=== PATIENT | male | born 1960 | race Caucasian/White ===

== ENCOUNTER 2016-03-31 08:13 | Emergency (ER) | payer OTHER ==
--- NOTE | 2016-03-31 10:48 | DIAGNOSTIC IMAGING REPORT ---
PROCEDURE: XR CHEST 1 VIEW INDICATION: DIZZY TECHNIQUE: Portable AP view 10:32 am COMPARISON: None. FINDINGS: Lungs are clear. Heart and mediastinum are normal. Thorax is normal. IMPRESSION: 1. Negative chest.
--- NOTE | 2016-03-31 12:00 | ED ORDER SUMMARY ---
..... Patient: SARINA RESTREPO OrderSheet [facility] VisitID: [id number] [address] [place] [address] 55y, M Registration Date/Time: 03/31/2016 ORDER SHEET Weight: 108.8 kg (stated) Allergies: No Known Drug Allergy GENERAL ORDERS: CBC w Diff Urgent (08:38 03/31/2016 Mer GEORGES) (Ack 8:40 LNations ER Tech1) (10:23 NHouse ER Tech1) CMP Urgent (08:38 03/31/2016 Mer GEORGES) (Ack 8:40 LNations ER Tech1) (10:23 NHouse ER Tech1) UA-Culture if indicated Urgent (08:38 03/31/2016 Mer GEORGES) (Ack 8:40 LNations ER Tech1) (10:23 NHouse ER Tech1) Vitals - Orthostatic (08:39 03/31/2016 Mer GEORGES) (Ack 8:41 LNations ER Tech1) (11:13 NHouse ER Tech1) EKG - ER Stat (08:41 03/31/2016 LNations ER Tech1 per protocol) (8:42 LNations ER Tech1) CPK Urgent (08:42 03/31/2016 Mer GEORGES) (Ack 8:47 LNations ER Tech1) (10:23 NHouse ER Tech1) Troponin-I Urgent (08:42 03/31/2016 Mer GEORGES) (Ack 8:47 LNations ER Tech1) (10:23 NHouse ER Tech1) Sports Instructor (Continuous) (08:50 03/31/2016 Mer GEORGES) (Ack 9:08 SStone R.N.) Pulse oximeter (08:50 03/31/2016 Mer GEORGES) (Ack 9:08 SStone R.N.) Oxygen (2 L/min) (NC) (08:50 03/31/2016 Mer GEORGES) (Ack 9:08 SStone R.N.) Chest 1V Urgent (10:23 03/31/2016 Liliane GEORGES) (Ack 10:25 NHouse ER Tech1) (11:18 NHouse ER Tech1) MEDICATION ORDERS: Aspirin PO 325 mg (NOW) (08:42 03/31/2016 Mer GEORGES) (Ack 8:44 SStone R.N.) (9:07 SStone R.N.) IV FLUIDS: IV Saline Lock (08:38 03/31/2016 Mer GEORGES) (Ack 8:44 SStone R.N.) (9:07 SStone R.N.) IV Saline Lock (08:50 03/31/2016 Mer GEORGES) (Ack 9:07 SStone R.N.) ORDER SHEET NOTES: [Electronically signed by Brianna Reagan R.N. (12:09 03/31/2016)] [Electronically signed by Trey Kirby MD (15:12 03/31/2016)] [Electronically locked/signed by Brianna Reagan R.N. (12:09 03/31/2016)]
--- NOTE | 2016-03-31 12:00 | ED ORDER SUMMARY ---
..... Patient: SARINA RESTREPO OrderSheet [facility] VisitID: [id number] [address] [place] [address] 55y, M Registration Date/Time: 03/31/2016 ORDER SHEET Weight: 108.8 kg (stated) Allergies: No Known Drug Allergy GENERAL ORDERS: CBC w Diff Urgent (08:38 03/31/2016 Mer GEORGES) (Ack 8:40 LNations ER Tech1) (10:23 NHouse ER Tech1) CMP Urgent (08:38 03/31/2016 Mer GEORGES) (Ack 8:40 LNations ER Tech1) (10:23 NHouse ER Tech1) UA-Culture if indicated Urgent (08:38 03/31/2016 Mer GEORGES) (Ack 8:40 LNations ER Tech1) (10:23 NHouse ER Tech1) Vitals - Orthostatic (08:39 03/31/2016 Mer GEORGES) (Ack 8:41 LNations ER Tech1) (11:13 NHouse ER Tech1) EKG - ER Stat (08:41 03/31/2016 LNations ER Tech1 per protocol) (8:42 LNations ER Tech1) CPK Urgent (08:42 03/31/2016 Mer GEORGES) (Ack 8:47 LNations ER Tech1) (10:23 NHouse ER Tech1) Troponin-I Urgent (08:42 03/31/2016 Mer GEORGES) (Ack 8:47 LNations ER Tech1) (10:23 NHouse ER Tech1) Teletypist (Continuous) (08:50 03/31/2016 Mer GEORGES) (Ack 9:08 SStone R.N.) Pulse oximeter (08:50 03/31/2016 Mer GEORGES) (Ack 9:08 SStone R.N.) Oxygen (2 L/min) (NC) (08:50 03/31/2016 Mer GEORGES) (Ack 9:08 SStone R.N.) Chest 1V Urgent (10:23 03/31/2016 Liliane GEORGES) (Ack 10:25 NHouse ER Tech1) (11:18 NHouse ER Tech1) MEDICATION ORDERS: Aspirin PO 325 mg (NOW) (08:42 03/31/2016 Mer GEORGES) (Ack 8:44 SStone R.N.) (9:07 SStone R.N.) IV FLUIDS: IV Saline Lock (08:38 03/31/2016 Mer GEORGES) (Ack 8:44 SStone R.N.) (9:07 SStone R.N.) IV Saline Lock (08:50 03/31/2016 Mer GEORGES) (Ack 9:07 SStone R.N.) ORDER SHEET NOTES: [Electronically signed by Brianna Reagan R.N. (12:09 03/31/2016)] [Electronically signed by Trey Kirby MD (15:12 03/31/2016)] [Electronically locked/signed by Brianna Reagan R.N. (12:09 03/31/2016)]
--- NOTE | 2016-03-31 12:00 | ED CLINICAL REPORT ---
Clinical Report - Physicians/Mid Levels [facility] [address] [place] [address] 03/31/2016 8:17 Patient: SARINA RESTREPO Time Seen: 08:31. Arrived- By private vehicle. Historian- patient. HISTORY OF PRESENT ILLNESS Chief Complaint: NEAR-SYNCOPE. The patient has recovered. This occurred yesterday. (Yesterday near fainting episode 1200. Another episode at 0530). The patient felt faint. The patient had preceding symptoms of light-headedness. (Feels woozy and dizzy.). Recent medical care: The patient was seen recently by a health care provider. ( [facility] medicine - bloodpressure.). REVIEW OF SYSTEMS The patient has had a headache (not currently). He has had chest pain (MAX 4-5 NOT 2/10. He attributes this to his reflux disease. He says that the symptoms are identical to those he experienced intermittently over the years.). All systems otherwise negative, except as recorded above. PAST HISTORY ( [facility] PROBLEMS: Bronchitis . Sinus disease . Reflux. Hypertension. ADDITIONAL SURGERIES: Sinus Surgery). Problems: Bronchitis . Sinus disease . Reflux. Hypertension. Additional Surgeries: Sinus Surgery. Medications: Montelukast 10 mg q.h.s.. Lsinopril 40 mg daily\. Clorthalidone 25 mg daily. Proair HFA 2 puffs q.4-6h prn. Amlodipine 10 mg daily. Allergies: No Known Drug Allergy. SOCIAL HISTORY Former smoker. FAMILY HISTORY Denies family medical history. ADDITIONAL NOTES The nursing notes have been reviewed. PHYSICAL EXAM Vital Signs: 03/31/2016 08:24 BP: 151/90. HR: 82. RR: 18. O2 saturation: 100%. Temp: 97.8 F. Pain level now: 0/10. Have been reviewed. Appearance: Alert. No acute distress. Eyes: Pupils equal, round and reactive to light. No nystagmus. ENT: Normal ENT inspection. Moist mucous membranes. Pharynx normal. Neck: Normal inspection. Neck supple. No meningeal signs or carotid bruit. CVS: Normal heart rate and rhythm. Heart sounds normal. Respiratory: No respiratory distress. Breath sounds normal. Abdomen: Soft and nontender. No organomegaly. Back: Normal inspection. Skin: Skin warm and dry. Normal skin color. No rash. Normal skin turgor. Extremities: Extremities exhibit normal ROM. No calf tenderness. No lower extremity edema. Neuro: Alert. Mood/affect normal. Speech normal. Cranial nerves normal (as tested). No cerebellar findings. No motor deficit. No sensory deficit. LABS, X-RAYS, AND EKG EKG: Normal EKG. Chest X-ray: No acute disease. The X-rays were independently viewed by me. Laboratory Tests: UA-Culture if indicated: (JIM: 03/31/2016 09:55) ( [facility] 03/31/2016 10:36) Final results Test Result Flag Units (Reference) URINE COLOR YELLOW URINE APPEARANCE CLEAR URINE GLUCOSE NEGATIVE (NEGATIVE) URINE BILIRUBIN NEGATIVE (NEGATIVE) URINE KETONE 1+ (NEGATIVE) URINE SPECIFIC GRAVITY 1.010 (1.010-1.030) URINE PH 6.0 (5.0-8.0) URINE PROTEIN NEGATIVE (NEGATIVE) URINE UROBILINOGEN 0.2 EU/dL (0.2-1.0) URINE NITRITE NEGATIVE (NEGATIVE) URINE BLOOD NEGATIVE (NEGATIVE) URINE LEUK ESTERASE NEGATIVE (NEGATIVE) URINE RBC 0-1 rbc/hpf (0-1) URINE WBC NONE SEEN wbc/hpf (0-1) URINE EPITHELIAL CELLS NONE SEEN EPI/hpf (0-5) URINE BACTERIA NONE SEEN (NONE SEEN) URINE COMMENT CULT NOT INDICATED URINE CULTURES ARE SET-UP BASED ON THE FOLLOWING CRITERIA:POSITIVE NITRITEPOSITIVE LEUKOCYTE ESTERASEGREATER THAN 10 WHITE BLOOD CELLSMODERATE (2+) OR GREATER BACTERIA CBC w Diff: (JIM: 03/31/2016 08:55) ( [facility] 03/31/2016 09:48) Final results Test Result Flag Units (Reference) WHITE BLOOD COUNT 4.9 K/uL (4.5-11.5) RED BLOOD COUNT 5.37 M/uL (4.50-5.90) HEMOGLOBIN 16.6 gm/dL (13.5-17.5) HEMATOCRIT 47.8 % (41.0-53.0) MEAN CELL VOLUME 89 fL (80-100) MEAN CORPUSCULAR HGB 31 pg (26-34) MEAN CORPUSCULAR HGB CONC 35 g/dL (31-37) RED CELL DISTRIBUTION WIDTH 11.9 % (11.6-14.8) PLATELET COUNT 220 K/uL (150-400) POLY % 57 % (50-75) BAND % 2 % (0-8) LYMPH 32 % (25-40) MONO 7 % (3-14) EOSINOPHIL % 2 % (0-4) BASOPHIL % 0 % (0-2) METAMYELOCYTE % 0 % (0-1) MYELOCYTE 0 % (0-1) OTHER CELL TYPE 0 RBC MORPHOLOGY NORMAL RBC POP CMP: (JIM: 03/31/2016 08:55) ( MsgRcvd 03/31/2016 09:34) Final results Test Result Flag Units (Reference) GLUCOSE 131 H mg/dL (70-110) BUN 21 H mg/dL (7-18) CREATININE 1.1 mg/dL (0.6-1.3) Estimated GFR >60 mL/min Estimated GFR- >60 mL/min Note: Persistent reduction over 3 months in eGFR<60 mL/min/1.73 m2 defines CKD. Patients with eGFR values>=60 mL/min/1.73 m2 may also have CKD if evidence ofpersistent proteinuria. Additional information may be foundat www.kidney.org. SODIUM 136 mmol/L (136-145) POTASSIUM 3.5 mmol/L (3.5-5.1) CHLORIDE 98 mmol/L (98-107) CARBON DIOXIDE 28 mmol/L (21-32) CALCIUM 9.0 mg/dL (8.5-10.1) TOTAL PROTEIN 7.2 g/dL (6.4-8.2) ALBUMIN 4.4 g/dL (3.3-5.0) BILIRUBIN, TOTAL 3.2 H mg/dL (0.0-1.0) ALKALINE PHOSPHATASE 72 U/L (46-116) AST (SGOT) 18 U/L (15-37) ALT (SGPT) 40 U/L (12-78) CPK 75 U/L (24-260) TROPONIN I <0.05 ng/mL (0.00-1.5) TROPONIN REFERENCE RANGE:<0.1 NEGATIVE0.1-1.5 INDETERMINANT>1.5 POSITIVE . PROGRESS AND PROCEDURES Course of Care: 09:04 03/31/16. Care transferred to Dr Kirby due to change of shift/ Russel Oneal MD the case was discussed with Dr. Oneal at change of shift. I reviewed the patient's history with him and then later with the patient and I examined the patient as well. My findings were consistent with those noted by Dr. Oneal. - . Patient/family counseled. Old medical records ordered. Old records unavailable. Disposition: Discharged. Condition: stable. CLINICAL IMPRESSION Near syncope INSTRUCTIONS (talk with your doctor about whether he would benefit from an adjustment to your antihypertensive medications). Warnings: Further evaluation is necessary. GENERAL WARNINGS: Return or contact your physician immediately if your condition worsens or changes unexpectedly, if not improving as expected, or if other problems arise. Your Current Medications: CONTINUE TAKING THE FOLLOWING MEDICATIONS: Amlodipine 10 mg daily*. Clorthalidone 25 mg daily*. Lsinopril 40 mg daily\*. Montelukast 10 mg q.h.s.*. Proair HFA 2 puffs q.4-6h prn*. Understanding of the discharge instructions verbalized by patient. Follow-up with: Carroll Hernandez MD, [facility], , [address] [place] [address] Follow up in seven days. Call for an appointment. (Electronically signed by Trey Kirby MD 03/31/2016 15:12)
--- NOTE | 2016-03-31 12:00 | ED NURSING NOTES ---
Clinical Report - Nurses [facility] [address] [place] [address] 03/31/2016 8:17 Patient: SARINA RESTREPO TRIAGE Triage time 08:24. Acuity: LEVEL 2. Chief Complaint: (dizziness. Pt. reports BP med change 4 days ago.). --08:30 Brianna Reagan R.N. 08:24 03/31/16. BP: 151/90. HR: 82. RR: 18. O2 saturation: 100%. Temp: 97.8 F. Pain level now: 0. --08:30 Brianna Reagan R.N. Weight: 108.8 kg stated. Height/Length: 73 inches Per Patient. BMI: 31.7. --08:28 Brianna Reagan R.N. Medications Amlodipine 10 mg daily. --11:03 Brianna Reagan R.N. Proair HFA 2 puffs q.4-6h prn. --11:03 Brianna Reagan R.N. Clorthalidone 25 mg daily. --11:04 Brianna Reagan R.N. Lsinopril 40 mg daily\. --11:04 Brianna Reagan R.N. Montelukast 10 mg q.h.s.. --11:05 Brianna Reagan R.N. The following entry was struck by Brianna Reagan R.N., 11:03 (03/31/16) Reason - other(med list rec'd from pharmacy). <<STRICKEN ENTRY-- Unknown BP medication . --08:26 Brianna Reagan R.N. --END STRIKE>> The following entry was struck by Brianna Reagan R.N., 11:02 (03/31/16) Reason - other(med list from pharmacy rec'd). <<STRICKEN ENTRY-- Lotrel Oral. --08:26 Brianna Reagan R.N. --END STRIKE>>. Allergies No Known Drug Allergy. --08:25 Brianna Reagan R.N. History Arrived by private vehicle. Historian: patient. ( headache, sinus pressure, substernal chest pressure pt. thinks is related to reflux.). He has had weakness and a cough. 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 SOCIAL HX: Smoker- current status unknown (quit smoking cigarettes 18 years ago.). Occasional alcohol use. FALL RISK ASSESSMENT: Fall risk assessment completed. No fall risk identified. NUTRITIONAL RISK ASSESSMENT: The nutritional risk assessment revealed no deficiencies. FUNCTIONAL ASSESSMENT: Functional assessment: no impairments noted. LEARNING NEEDS ASSESSMENT: The learning needs assessment revealed no barriers. SKIN INTEGRITY ASSESSMENT: Skin integrity risk assessment completed. No skin integrity risk identified. --08:30 Brianna Reagan R.N. Primary physician ([place]). --08:30 Brianna Reagan R.N. PROBLEMS: Bronchitis . Sinus disease . Reflux. Hypertension. --08:27 Brianna Reagan R.N. ADDITIONAL SURGERIES: Sinus Surgery. --08:29 Brianna Reagan R.N. Interventions ID band on patient. To treatment room. --08:30 Brianna Reagan R.N. PHYSICAL ASSESSMENT To room via wheelchair. GENERAL / NEURO / PSYCH: Alert. Oriented X 4. Appears in no acute distress. HEENT: Pupils equal, round and reactive to light. No facial asymmetry noted. RESPIRATORY: Respirations not labored. Chest nontender. Breath sounds within normal limits. CVS: Normal sinus rhythm noted. Pulses within normal limits. GI / : Abdomen soft and nontender. SKIN: Skin intact. Skin is warm and dry. Normal skin turgor. --08:31 Brianna Reagan R.N. NURSING PROGRESS NOTES The plan of care for this patient includes an assessment with efforts to address impairment of the cardiovascular system. Monitoring of patient in place. EKG time: (08:25). EKG was performed by a tech and shown to the ED physician. Patient gowned. Head of bed elevated. Reassurance given. RESPIRATORY: No respiratory distress. Patient waiting for evaluation. --08:32 Brianna Reagan R.N. 09:07 03/31/2016 Aspirin PO Tablets 324 mg given. --09:07 Brianna Reagan R.N. 09:07 03/31/2016 Site #1 started via IV in the right hand with an 20g angiocath. Blood drawn: rainbow set. Saline lock flushed with 10 mL saline. --09:07 Brianna Reagan R.N. ( Pt. lab results reviewed. Pt. ambulatory to the bathroom without apparent distress.). --09:35 Brianna Reagan R.N. ( Patient removed performing arts technicians. Advised of need for urine sample.). --09:54 Brianna Reagan R.N. 11:18 03/31/16. BP: 119/75 taken while standing. HR: 89. 11:18 03/31/16. BP: 127/88 taken while sitting. HR: 71. 11:17 03/31/16. BP: 130/81 taken while lying. HR: 71. 08:24 03/31/16. BP: 151/90. HR: 82. RR: 18. O2 saturation: 100%. Temp: 97.8 F. Pain level now: 0/10. --11:21 Genoveva Craig R.N. DISPOSITION / DISCHARGE 12:08 03/31/2016 Site #1 removed upon discharge. Pressure dressing and bandage applied. --12:08 Brianna Reagan R.N. Departure time: 1205. Condition at departure: improved and stable. Discharge instructions provided and reviewed with the patient. Reviewed warnings. Reviewed medication(s). Patient verbalized understanding. Written instructions provided in [place]. The patient was discharged home. He left the Emergency Department ambulatory and via private vehicle. Patient driving. --12:08 Brianna Reagan R.N. 12:07 03/31/16. BP: 118/98. HR: 82. RR: 18. O2 saturation: 97%. Pain level now: 0/10. --12:08 Brianna Reagan R.N. Locked/Released at 03/31/2016 12:09 by Brianna Reagan R.N.
--- NOTE | 2016-03-31 12:00 | ED NURSING NOTES ---
Clinical Report - Nurses [facility] [address] [place] [address] 03/31/2016 8:17 Patient: SARINA RESTREPO TRIAGE Triage time 08:24. Acuity: LEVEL 2. Chief Complaint: (dizziness. Pt. reports BP med change 4 days ago.). --08:30 Brianna Reagan R.N. 08:24 03/31/16. BP: 151/90. HR: 82. RR: 18. O2 saturation: 100%. Temp: 97.8 F. Pain level now: 0. --08:30 Brianna Reagan R.N. Weight: 108.8 kg stated. Height/Length: 73 inches Per Patient. BMI: 31.7. --08:28 Brianna Reagan R.N. Medications Amlodipine 10 mg daily. --11:03 Brianna Reagan R.N. Proair HFA 2 puffs q.4-6h prn. --11:03 Brianna Reagan R.N. Clorthalidone 25 mg daily. --11:04 Brianna Reagan R.N. Lsinopril 40 mg daily\. --11:04 Brianna Reagan R.N. Montelukast 10 mg q.h.s.. --11:05 Brianna Reagan R.N. The following entry was struck by Brianna Reagan R.N., 11:03 (03/31/16) Reason - other(med list rec'd from pharmacy). <<STRICKEN ENTRY-- Unknown BP medication . --08:26 Brianna Reagan R.N. --END STRIKE>> The following entry was struck by Brianna Reagan R.N., 11:02 (03/31/16) Reason - other(med list from pharmacy rec'd). <<STRICKEN ENTRY-- Lotrel Oral. --08:26 Brianna Reagan R.N. --END STRIKE>>. Allergies No Known Drug Allergy. --08:25 Brianna Reagan R.N. History Arrived by private vehicle. Historian: patient. ( headache, sinus pressure, substernal chest pressure pt. thinks is related to reflux.). He has had weakness and a cough. 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 SOCIAL HX: Smoker- current status unknown (quit smoking cigarettes 18 years ago.). Occasional alcohol use. FALL RISK ASSESSMENT: Fall risk assessment completed. No fall risk identified. NUTRITIONAL RISK ASSESSMENT: The nutritional risk assessment revealed no deficiencies. FUNCTIONAL ASSESSMENT: Functional assessment: no impairments noted. LEARNING NEEDS ASSESSMENT: The learning needs assessment revealed no barriers. SKIN INTEGRITY ASSESSMENT: Skin integrity risk assessment completed. No skin integrity risk identified. --08:30 Brianna Reagan R.N. Primary physician ([place]). --08:30 Brianna Reagan R.N. PROBLEMS: Bronchitis . Sinus disease . Reflux. Hypertension. --08:27 Brianna Reagan R.N. ADDITIONAL SURGERIES: Sinus Surgery. --08:29 Brianna Reagan R.N. Interventions ID band on patient. To treatment room. --08:30 Brianna Reagan R.N. PHYSICAL ASSESSMENT To room via wheelchair. GENERAL / NEURO / PSYCH: Alert. Oriented X 4. Appears in no acute distress. HEENT: Pupils equal, round and reactive to light. No facial asymmetry noted. RESPIRATORY: Respirations not labored. Chest nontender. Breath sounds within normal limits. CVS: Normal sinus rhythm noted. Pulses within normal limits. GI / : Abdomen soft and nontender. SKIN: Skin intact. Skin is warm and dry. Normal skin turgor. --08:31 Brianna Reagan R.N. NURSING PROGRESS NOTES The plan of care for this patient includes an assessment with efforts to address impairment of the cardiovascular system. Monitoring of patient in place. EKG time: (08:25). EKG was performed by a tech and shown to the ED physician. Patient gowned. Head of bed elevated. Reassurance given. RESPIRATORY: No respiratory distress. Patient waiting for evaluation. --08:32 Brianna Reagan R.N. 09:07 03/31/2016 Aspirin PO Tablets 324 mg given. --09:07 Brianna Reagan R.N. 09:07 03/31/2016 Site #1 started via IV in the right hand with an 20g angiocath. Blood drawn: rainbow set. Saline lock flushed with 10 mL saline. --09:07 Brianna Reagan R.N. ( Pt. lab results reviewed. Pt. ambulatory to the bathroom without apparent distress.). --09:35 Brianna Reagan R.N. ( Patient removed last sawyer. Advised of need for urine sample.). --09:54 Brianna Reagan R.N. 11:18 03/31/16. BP: 119/75 taken while standing. HR: 89. 11:18 03/31/16. BP: 127/88 taken while sitting. HR: 71. 11:17 03/31/16. BP: 130/81 taken while lying. HR: 71. 08:24 03/31/16. BP: 151/90. HR: 82. RR: 18. O2 saturation: 100%. Temp: 97.8 F. Pain level now: 0/10. --11:21 Genoveva Craig R.N. DISPOSITION / DISCHARGE 12:08 03/31/2016 Site #1 removed upon discharge. Pressure dressing and bandage applied. --12:08 Brianna Reagan R.N. Departure time: 1205. Condition at departure: improved and stable. Discharge instructions provided and reviewed with the patient. Reviewed warnings. Reviewed medication(s). Patient verbalized understanding. Written instructions provided in [place]. The patient was discharged home. He left the Emergency Department ambulatory and via private vehicle. Patient driving. --12:08 Brianna Reagan R.N. 12:07 03/31/16. BP: 118/98. HR: 82. RR: 18. O2 saturation: 97%. Pain level now: 0/10. --12:08 Brianna Reagan R.N. Locked/Released at 03/31/2016 12:09 by Brianna Reagan R.N.
--- NOTE | 2016-03-31 12:00 | ED CLINICAL REPORT ---
Clinical Report - Physicians/Mid Levels [facility] [address] [place] [address] 03/31/2016 8:17 Patient: SARINA RESTREPO Time Seen: 08:31. Arrived- By private vehicle. Historian- patient. HISTORY OF PRESENT ILLNESS Chief Complaint: NEAR-SYNCOPE. The patient has recovered. This occurred yesterday. (Yesterday near fainting episode 1200. Another episode at 0530). The patient felt faint. The patient had preceding symptoms of light-headedness. (Feels woozy and dizzy.). Recent medical care: The patient was seen recently by a health care provider. ( [facility] medicine - bloodpressure.). REVIEW OF SYSTEMS The patient has had a headache (not currently). He has had chest pain (MAX 4-5 NOT 2/10. He attributes this to his reflux disease. He says that the symptoms are identical to those he experienced intermittently over the years.). All systems otherwise negative, except as recorded above. PAST HISTORY ( [facility] PROBLEMS: Bronchitis . Sinus disease . Reflux. Hypertension. ADDITIONAL SURGERIES: Sinus Surgery). Problems: Bronchitis . Sinus disease . Reflux. Hypertension. Additional Surgeries: Sinus Surgery. Medications: Montelukast 10 mg q.h.s.. Lsinopril 40 mg daily\. Clorthalidone 25 mg daily. Proair HFA 2 puffs q.4-6h prn. Amlodipine 10 mg daily. Allergies: No Known Drug Allergy. SOCIAL HISTORY Former smoker. FAMILY HISTORY Denies family medical history. ADDITIONAL NOTES The nursing notes have been reviewed. PHYSICAL EXAM Vital Signs: 03/31/2016 08:24 BP: 151/90. HR: 82. RR: 18. O2 saturation: 100%. Temp: 97.8 F. Pain level now: 0/10. Have been reviewed. Appearance: Alert. No acute distress. Eyes: Pupils equal, round and reactive to light. No nystagmus. ENT: Normal ENT inspection. Moist mucous membranes. Pharynx normal. Neck: Normal inspection. Neck supple. No meningeal signs or carotid bruit. CVS: Normal heart rate and rhythm. Heart sounds normal. Respiratory: No respiratory distress. Breath sounds normal. Abdomen: Soft and nontender. No organomegaly. Back: Normal inspection. Skin: Skin warm and dry. Normal skin color. No rash. Normal skin turgor. Extremities: Extremities exhibit normal ROM. No calf tenderness. No lower extremity edema. Neuro: Alert. Mood/affect normal. Speech normal. Cranial nerves normal (as tested). No cerebellar findings. No motor deficit. No sensory deficit. LABS, X-RAYS, AND EKG EKG: Normal EKG. Chest X-ray: No acute disease. The X-rays were independently viewed by me. Laboratory Tests: UA-Culture if indicated: (JIM: 03/31/2016 09:55) ( [facility] 03/31/2016 10:36) Final results Test Result Flag Units (Reference) URINE COLOR YELLOW URINE APPEARANCE CLEAR URINE GLUCOSE NEGATIVE (NEGATIVE) URINE BILIRUBIN NEGATIVE (NEGATIVE) URINE KETONE 1+ (NEGATIVE) URINE SPECIFIC GRAVITY 1.010 (1.010-1.030) URINE PH 6.0 (5.0-8.0) URINE PROTEIN NEGATIVE (NEGATIVE) URINE UROBILINOGEN 0.2 EU/dL (0.2-1.0) URINE NITRITE NEGATIVE (NEGATIVE) URINE BLOOD NEGATIVE (NEGATIVE) URINE LEUK ESTERASE NEGATIVE (NEGATIVE) URINE RBC 0-1 rbc/hpf (0-1) URINE WBC NONE SEEN wbc/hpf (0-1) URINE EPITHELIAL CELLS NONE SEEN EPI/hpf (0-5) URINE BACTERIA NONE SEEN (NONE SEEN) URINE COMMENT CULT NOT INDICATED URINE CULTURES ARE SET-UP BASED ON THE FOLLOWING CRITERIA:POSITIVE NITRITEPOSITIVE LEUKOCYTE ESTERASEGREATER THAN 10 WHITE BLOOD CELLSMODERATE (2+) OR GREATER BACTERIA CBC w Diff: (JIM: 03/31/2016 08:55) ( [facility] 03/31/2016 09:48) Final results Test Result Flag Units (Reference) WHITE BLOOD COUNT 4.9 K/uL (4.5-11.5) RED BLOOD COUNT 5.37 M/uL (4.50-5.90) HEMOGLOBIN 16.6 gm/dL (13.5-17.5) HEMATOCRIT 47.8 % (41.0-53.0) MEAN CELL VOLUME 89 fL (80-100) MEAN CORPUSCULAR HGB 31 pg (26-34) MEAN CORPUSCULAR HGB CONC 35 g/dL (31-37) RED CELL DISTRIBUTION WIDTH 11.9 % (11.6-14.8) PLATELET COUNT 220 K/uL (150-400) POLY % 57 % (50-75) BAND % 2 % (0-8) LYMPH 32 % (25-40) MONO 7 % (3-14) EOSINOPHIL % 2 % (0-4) BASOPHIL % 0 % (0-2) METAMYELOCYTE % 0 % (0-1) MYELOCYTE 0 % (0-1) OTHER CELL TYPE 0 RBC MORPHOLOGY NORMAL RBC POP CMP: (JIM: 03/31/2016 08:55) ( MsgRcvd 03/31/2016 09:34) Final results Test Result Flag Units (Reference) GLUCOSE 131 H mg/dL (70-110) BUN 21 H mg/dL (7-18) CREATININE 1.1 mg/dL (0.6-1.3) Estimated GFR >60 mL/min Estimated GFR- >60 mL/min Note: Persistent reduction over 3 months in eGFR<60 mL/min/1.73 m2 defines CKD. Patients with eGFR values>=60 mL/min/1.73 m2 may also have CKD if evidence ofpersistent proteinuria. Additional information may be foundat www.kidney.org. SODIUM 136 mmol/L (136-145) POTASSIUM 3.5 mmol/L (3.5-5.1) CHLORIDE 98 mmol/L (98-107) CARBON DIOXIDE 28 mmol/L (21-32) CALCIUM 9.0 mg/dL (8.5-10.1) TOTAL PROTEIN 7.2 g/dL (6.4-8.2) ALBUMIN 4.4 g/dL (3.3-5.0) BILIRUBIN, TOTAL 3.2 H mg/dL (0.0-1.0) ALKALINE PHOSPHATASE 72 U/L (46-116) AST (SGOT) 18 U/L (15-37) ALT (SGPT) 40 U/L (12-78) CPK 75 U/L (24-260) TROPONIN I <0.05 ng/mL (0.00-1.5) TROPONIN REFERENCE RANGE:<0.1 NEGATIVE0.1-1.5 INDETERMINANT>1.5 POSITIVE . PROGRESS AND PROCEDURES Course of Care: 09:04 03/31/16. Care transferred to Dr Kirby due to change of shift/ Russel Oneal MD the case was discussed with Dr. Oneal at change of shift. I reviewed the patient's history with him and then later with the patient and I examined the patient as well. My findings were consistent with those noted by Dr. Oneal. - . Patient/family counseled. Old medical records ordered. Old records unavailable. Disposition: Discharged. Condition: stable. CLINICAL IMPRESSION Near syncope INSTRUCTIONS (talk with your doctor about whether he would benefit from an adjustment to your antihypertensive medications). Warnings: Further evaluation is necessary. GENERAL WARNINGS: Return or contact your physician immediately if your condition worsens or changes unexpectedly, if not improving as expected, or if other problems arise. Your Current Medications: CONTINUE TAKING THE FOLLOWING MEDICATIONS: Amlodipine 10 mg daily*. Clorthalidone 25 mg daily*. Lsinopril 40 mg daily\*. Montelukast 10 mg q.h.s.*. Proair HFA 2 puffs q.4-6h prn*. Understanding of the discharge instructions verbalized by patient. Follow-up with: Carroll Hernandez MD, [facility], , [address] [place] [address] Follow up in seven days. Call for an appointment. (Electronically signed by Trey Kirby MD 03/31/2016 15:12)
--- NOTE | 2016-03-31 15:13 | ED DISCHARGE INSTRUCTIONS ---
Patient: SARINA RESTREPO General Instructions [facility] VisitID: [id number] [address] [place] [address] 55y, M Registration Date/Time: 03/31/2016 Near syncope INSTRUCTIONS (talk with your doctor about whether he would benefit from an adjustment to your antihypertensive medications). Warnings: Further evaluation is necessary. GENERAL WARNINGS: Return or contact your physician immediately if your condition worsens or changes unexpectedly, if not improving as expected, or if other problems arise. Your Current Medications: CONTINUE TAKING THE FOLLOWING MEDICATIONS: Amlodipine 10 mg daily*. Clorthalidone 25 mg daily*. Lsinopril 40 mg daily\\*. Montelukast 10 mg q.h.s.*. Proair HFA 2 puffs q.4-6h prn*. Understanding of the discharge instructions verbalized by patient. Follow-up with: Carroll Hernandez MD, [facility], , [address] [place] [address] Follow up in seven days. Call for an appointment. ADDITIONAL INFORMATION Near-Fainting:Uncertain Cause Fainting (syncope) is a temporary loss of consciousness ("passing out"). It occurs when blood flow to the brain is reduced. Near-fainting ("near-syncope") is like fainting, but you do not fully "pass out." The common minor causes of near fainting include sudden fear, pain, emotional stress, overexertion, or quickly standing up after sitting or lying for a long time. The more serious causes for near fainting are due to either a very slow or very fast heart beat, dehydration, anemia, blood loss, problems related to the heart, or taking too much high blood pressure medicine. The exact cause of your episode is not certain. More tests may be required. Therefore, it is important that you follow up with your doctor as advised. Home Care: 1) Rest today. Resume your normal activities as soon as you are feeling back to normal. 2) If you become light-headed or dizzy, lie down right away or sit with your head between your knees. 3) Because we do not know the exact cause of your near fainting spell, another spell could occur without warning. Therefore, do not drive a car or use dangerous equipment. D o not take a bath alone (use a shower instead). Do not swim alone. You can resume these activities when your doctor says that you are no longer in danger of having a near fainting spell. 4) Stay well hydrated by drinking enough fluid each day. Follow Up with your doctor as instructed. Get Prompt Medical Attention if any of the following occur: -- Another fainting spell occurs, and it is not explained by the common causes listed above -- Chest, arm, neck, jaw, back or abdominal pain -- Shortness of breath -- Weakness, tingling or numbness in one side of the face, one arm or leg -- Slurred speech, confusion, trouble walking or seeing -- Seizure -- Blood in vomit, stools (black or red color) -- (In women) unexpected vaginal bleeding You have been given the following additional information: Near Syncope, Unknown (Electronically signed by Trey Kirby MD 03/31/2016 15:12)
--- NOTE | 2016-03-31 15:13 | ED MED RECONCILIATION SUMMARY ---
Patient: SARINA RESTREPO Medication Reconciliation Report [facility] VisitID: [id number] [address] [place] [address] 55y, M Registration Date/Time: 03/31/2016 Weight: 108.8 kg Height/Length: 73 in. BMI: 31.7 ALLERGIES: No Known Drug Allergy The patient's Home Medications are listed below: CONTINUE TAKING THE FOLLOWING MEDICATIONS: Amlodipine 10 mg daily Clorthalidone 25 mg daily Lsinopril 40 mg daily\ Montelukast 10 mg q.h.s. Proair HFA 2 puffs q.4-6h prn The source(s) of the original Home Medication information: Not obtained. The following Medications were given to the patient in the Emergency Department: Aspirin [PO] PO 324 mg, administered: 03/31/2016 9:07:00 AM The following Medications were prescribed to the patient: None.
--- NOTE | 2016-03-31 15:13 | ED MAR SUMMARY ---
..... Medication Administration Record [facility] [address] [place] [address] Patient: SARINA RESTREPO Visit ID: [id number] 55y, M Weight: 108.8 kg Height/Length: 73 in BMI: 31.7 ALLERGIES: No Known Drug Allergy Given 09:07 03/31/2016 Brianna Reagan R.N. Medication Administered: ASPIRIN [PO], Dose: 324 mg Tablets PO. Medication Ordered: Aspirin PO 325 mg (NOW).
--- NOTE | 2016-03-31 15:13 | ED MED RECONCILIATION SUMMARY ---
Patient: SARINA RESTREPO Medication Reconciliation Report [facility] VisitID: [id number] [address] [place] [address] 55y, M Registration Date/Time: 03/31/2016 Weight: 108.8 kg Height/Length: 73 in. BMI: 31.7 ALLERGIES: No Known Drug Allergy The patient's Home Medications are listed below: CONTINUE TAKING THE FOLLOWING MEDICATIONS: Amlodipine 10 mg daily Clorthalidone 25 mg daily Lsinopril 40 mg daily\ Montelukast 10 mg q.h.s. Proair HFA 2 puffs q.4-6h prn The source(s) of the original Home Medication information: Not obtained. The following Medications were given to the patient in the Emergency Department: Aspirin [PO] PO 324 mg, administered: 03/31/2016 9:07:00 AM The following Medications were prescribed to the patient: None.
--- NOTE | 2016-03-31 15:13 | ED MAR SUMMARY ---
..... Medication Administration Record [facility] [address] [place] [address] Patient: SARINA RESTREPO Visit ID: [id number] 55y, M Weight: 108.8 kg Height/Length: 73 in BMI: 31.7 ALLERGIES: No Known Drug Allergy Given 09:07 03/31/2016 Brianna Reagan R.N. Medication Administered: ASPIRIN [PO], Dose: 324 mg Tablets PO. Medication Ordered: Aspirin PO 325 mg (NOW).
--- NOTE | 2016-03-31 15:13 | ED DISCHARGE INSTRUCTIONS ---
Patient: SARINA RESTREPO General Instructions [facility] VisitID: [id number] [address] [place] [address] 55y, M Registration Date/Time: 03/31/2016 Near syncope INSTRUCTIONS (talk with your doctor about whether he would benefit from an adjustment to your antihypertensive medications). Warnings: Further evaluation is necessary. GENERAL WARNINGS: Return or contact your physician immediately if your condition worsens or changes unexpectedly, if not improving as expected, or if other problems arise. Your Current Medications: CONTINUE TAKING THE FOLLOWING MEDICATIONS: Amlodipine 10 mg daily*. Clorthalidone 25 mg daily*. Lsinopril 40 mg daily\\*. Montelukast 10 mg q.h.s.*. Proair HFA 2 puffs q.4-6h prn*. Understanding of the discharge instructions verbalized by patient. Follow-up with: Carroll Hernandez MD, [facility], , [address] [place] [address] Follow up in seven days. Call for an appointment. ADDITIONAL INFORMATION Near-Fainting:Uncertain Cause Fainting (syncope) is a temporary loss of consciousness ("passing out"). It occurs when blood flow to the brain is reduced. Near-fainting ("near-syncope") is like fainting, but you do not fully "pass out." The common minor causes of near fainting include sudden fear, pain, emotional stress, overexertion, or quickly standing up after sitting or lying for a long time. The more serious causes for near fainting are due to either a very slow or very fast heart beat, dehydration, anemia, blood loss, problems related to the heart, or taking too much high blood pressure medicine. The exact cause of your episode is not certain. More tests may be required. Therefore, it is important that you follow up with your doctor as advised. Home Care: 1) Rest today. Resume your normal activities as soon as you are feeling back to normal. 2) If you become light-headed or dizzy, lie down right away or sit with your head between your knees. 3) Because we do not know the exact cause of your near fainting spell, another spell could occur without warning. Therefore, do not drive a car or use dangerous equipment. D o not take a bath alone (use a shower instead). Do not swim alone. You can resume these activities when your doctor says that you are no longer in danger of having a near fainting spell. 4) Stay well hydrated by drinking enough fluid each day. Follow Up with your doctor as instructed. Get Prompt Medical Attention if any of the following occur: -- Another fainting spell occurs, and it is not explained by the common causes listed above -- Chest, arm, neck, jaw, back or abdominal pain -- Shortness of breath -- Weakness, tingling or numbness in one side of the face, one arm or leg -- Slurred speech, confusion, trouble walking or seeing -- Seizure -- Blood in vomit, stools (black or red color) -- (In women) unexpected vaginal bleeding You have been given the following additional information: Near Syncope, Unknown (Electronically signed by Trey Kirby MD 03/31/2016 15:12)
== END 2016-03-31 12:05 | disposition home or self-care (01) ==
LOC: ED SRH 08:13
DX: R55 Syncope and collapse (principal); I10 Essential (primary) hypertension; Z79.899 Other long term (current) drug therapy
CPT/HCPCS: 90004; 90100; 90616; 91643; 92610; 95059

== ENCOUNTER 2016-04-21 10:14 | Outpatient (CLI) | payer BC ==
--- NOTE | 2016-04-21 11:41 | DIAGNOSTIC IMAGING REPORT ---
PROCEDURE: XR UPPER GI WITH AIR INDICATION: Heartburn. Coughing. Assess for reflux. TECHNIQUE: Double contrast study. Fluoroscopy time, 2.6 minutes; 2076.66 mGy. 55 fluoroscopic images (including cinefluoroscopy). COMPARISON: None. FINDINGS: Patulous gastroesophageal junction with moderate gastroesophageal reflux. There is a Schatzki's ring at the gastroesophageal junction (16 mm diameter) with minimal hiatal hernia. Esophagus is otherwise normal. Stomach is normal. There is mild thickening of the duodenal folds. No evidence of ulcer. IMPRESSION: 1. Patulous gastroesophageal junction with moderate reflux. 2. There is a Schatzki's ring at the gastroesophageal junction (16 mm) with minimal hiatal hernia (incidental findings). 3. Mild thickening of duodenal folds suggests hyperacidity or duodenitis. 4. Findings discussed with the patient.
== END 2016-04-21 23:00 ==
LOC: XR SRH 10:14
DX: K21.9 Gastro-esophageal reflux disease without esophagitis (principal)